=== PATIENT | male | born 1970 | race African-American/Black ===

== ENCOUNTER 2017-01-26 06:31 | Inpatient (IN) ==
[2017-01-26] MEDS ORDERED: diphenhydrAMINE 50 MG/1 ML VIAL ONE (06:44)
[2017-01-26] MEDS ORDERED: methylPREDNISolone SOD SUC 125 MG/2 ML VIAL ONE (06:44)
[2017-01-26] MEDS ORDERED: FAMOTIDINE 20 MG/2 ML VIAL IV ONE (06:45)
[2017-01-26] MEDS ORDERED: diphenhydrAMINE 50 MG/1 ML VIAL IV STA (07:04)
[2017-01-26] MEDS ORDERED: methylPREDNISolone SOD SUC 125 MG/2 ML VIAL IV STA (07:05)
[2017-01-26] MEDS ORDERED: FAMOTIDINE 20 MG/2 ML VIAL IV STA (07:05)
[2017-01-26] MEDS ORDERED: ONDANSETRON 4 MG/2 ML VIAL IV STA (07:35)
[2017-01-26] MEDS ORDERED: SODIUM CHLORIDE 0.9% 1,000 ML IV STA (07:35)
[2017-01-26 07:43] LABS: Basophils # 0.1 10*3/uL (0.0-0.2); Basophils % 0.5 % (0.0-0.8); Eosinophils # 0.3 10*3/uL (0.0-0.87); Eosinophils % 2.7 % (0.00-10.9); Immature Granulocytes % 0.3 %; Immature Granulocytes Absolute 0.03 #; Lymphocytes # 2.9 10*3/uL (1.4-4.0); Lymphocytes % 27.2 % (21.2-54.2); Mean Corpuscular HGB Conc 32.4 GM/DL (32-36); Mean Corpuscular Hemoglobin 22 PG (27-34); Mean Corpuscular Volume 69.2 FL (87-102); Mean Platelet Volume 10.7 FL (9.6-12.0); Monocytes # 0.9 10*3/uL (0.11-0.8); Monocytes % 8.7 % (1.7-12.7); Neutrophils # 6.4 10*3/uL (1.4-7.4); Neutrophils % 60.6 % (38.7-73.9); Platelet Count 436 T/CUMM (130-400); Red Blood Count 4.91 MC/CUMM (3.8-5.5); White Blood Count 10.5 T/CUMM (4-12)
[2017-01-26] MEDS ORDERED: RACEPINEPHRINE 0.5 ML NEB RESP TX ONE (08:00)
[2017-01-26] MEDS ORDERED: RACEPINEPHRINE 0.5 ML NEB RESP TX STA (08:05)
--- NOTE | 2017-01-26 08:05 | Progress Note ---
Family Medicine PN Sub Interval history: Will electively intubate patient since speech has worsened since admission. Received solumedrol pepcid with no improvement per report. WOULD NOT WEAN PATIENT WITHOUT ENT EVALUATION PRIOR TO EXTUBATION. Exam (Progress Note) - Constitutional Vitals: Period Temp Pulse Resp BP Sys/Thomson Pulse Ox Last 24 Hr 97.5 F 90 18 142/82 96 Results - Labs CBC & BMP: 01/26/17 06:51
--- NOTE | 2017-01-26 08:08 | Emergency Department Note ---
Jamison Summers Gwan, am scribing for, and in the presence of, Anthony Crabtree Jr., MD 06:51. Leyda Summers Marvin Jr., MD, personally performed the services described in this documentation, ascribed by Catie Swift in my presence, and it is both accurate and complete 807 . Arrival - Arrival Chief Complaint: Allergic Reaction Stated Complaint: allergic reaction tongue swollen ED Nursing Triage Note: C/C allergic reaction. Woke up this morning with tongue swollen. Takes Linsinopril last dose was yesterday Mode of Arrival: Wheelchair Limitations: No Limitations Source: Patient, Family, Old Records Reviewed, RN Notes Reviewed - History of Present Illness HPI Narrative: Pt is a 46 y/o male who presents to the ED with a c/o swollen tongue on the right side with an onset this morning. ie he noted this when he woke up. Patient stated that he is taking Lisinopril and that he recently has knee surgery in which he was prescribed pain medication and two different antibiotics. Nurse noted that the patient has his last dose of Lisinopril yesterday. Family said that patient was given 2 gel caps of Benadryl this morning at 0500. He denies any itching, trouble breathing or wheezing. Pt has a PMHx of HTN, dyslipidemia and obstructive sleep apnea. Pt has a SHx of occasional alcohol and tobacco use. No other problems/complaints reported in ED. Onset (ago): hour(s) Consistency: constant Severity: severe Allergies/Adverse Reactions: Allergies Allergy/AdvReac Type Severity Reaction Status Date / Time No Known Allergies Allergy Verified 01/26/17 06:38 Home Medications: Home Medications Medication Instructions Recorded Confirmed Type Hydrochlorothiazide [Microzide] 12.5 mg PO DAILY 09/23/16 09/24/16 History Lisinopril 20 mg PO DAILY 09/23/16 09/24/16 History Rosuvastatin Calcium [Crestor] 5 mg PO DAILY 09/23/16 09/24/16 History amLODIPine [Norvasc] 10 mg PO DAILY 09/23/16 09/24/16 History HYDROcodone/ACETAMIN 7.5-325 2 tablet PO Q4H PRN #25 tablet 09/24/16 Rx [[place] 7.5-325] Review of System - Review of System 12 point system: reviewed and no additional remarkable complaints except as stated - Review of System Respiratory: Present: as per HPI. Absent: respiratory distress, wheezing Allergic/Immunologic: Present: as per HPI, other (swollen right side of tongue) Medical,Surgical,& Family Hx - Medical History Cardio: History of: Hypertension Neurology: No history of: Seizures HEENT: History of: Eye Problem (READING GLASSES) Endocrine: History of: Dyslipidemia Respiratory: History of: Obstructive Sleep Apnea (CPAP ON OCCASION; PT CAN NOT WEAR CONTINOUS.) Genitourinary: History of: Bladder Problem (FREQUENT URINATION AT NIGHT.) Musculoskeletal: History of: Musculoskeletal Problems (LT GREAT TOE SPUR; RT KNEE INJ.) Other: History of: Anesthesia Reactions (PT STATES HE WOKE UP DURING KNEE SURGERY.) - Surgical History HEENT Surgeries: Surgical HX of: Tonsilectomy & Adenoidectomy Orthopedic Surgeries: Surgical HX of;: Total Knee Replacement (LEFT KNEE REPLACEMENT) - Social History Smoking Status: Light tobacco smoker Frequency of Alcohol Use: Occasionally Type of Drug Use: None Exam Physical Examination: General: Well-developed well-nourished, no apparent distress. Head: Normocephalic, atraumatic. Eyes: PERRLA, EOMI. Nose: No obvious acute deformities or discharge. Mouth: Tongue is grossly swollen with the right side more than the left. Still adequate space above is time to intubate if necessary. He seems to have no trouble breathing or swallowing at this time. He is not in stridor or distress. Neck: Full range of motion without obvious pain. No midline tender to palpation. Lymphatic: no significant lymphadenopathy noted. Lungs: Clear to auscultation bilaterally, normal and equal air movement bilaterally, no obvious rales or wheezing. Heart: regular rate and rhythm, no obvious mummers. Abdomen: Soft nontender, nondistended, normal active bowel sounds. Skin: No obivous acute lesions noted Musculoskeletal: No gross deformities. Neurological: No focal findings, cranial nerves II through XII grossly normal. Psychiatric: Anxious : Deferred Vital Signs: Vital Signs Temperature 97.5 F L 01/26/17 06:33 Pulse Rate 90 01/26/17 06:33 Respiratory Rate 18 01/26/17 06:33 Blood Pressure 142/82 01/26/17 06:33 O2 Sat by Pulse Oximetry 96 01/26/17 06:33 Course Course Narrative: Differential diagnosis, angioedema - Reevaluation(s) Reevaluation #1: It appears the tongue is getting a little bit more swollen and does have a little more difficulty talking. Anesthesiologist came over and they agree that patient needs to be intubated. They will take him over to the surgery to intubate him. We will admit him to the hospitalist service. I talked to the hospitalist service and they accept this patient for admission. Time: 07:33 Reevaluation #2: Anesthesia and ENT are here now. Will take the patient to the OR for intubation and then moving to the ICU. Hospitalist service has accepted this patient for care. They have already seen the patient also. Time: 08:06 Results - Labs CBC & BMP: 01/26/17 06:51 Lab Results: I have reviewed the patients labs Labs: Laboratory Tests 01/26/17 06:51 WBC 10.5 RBC 4.91 Hgb 11.0 L Hct 34.0 L MCV 69.2 L MCH 22 L MCHC 32.4 RDW 15.0 Plt Count 436 H MPV 10.7 Neut % (Auto) 60.6 Lymph % (Auto) 27.2 [place] % (Auto) 8.7 Eos % (Auto) 2.7 Baso % (Auto) 0.5 Neut # (Auto) 6.4 Lymph # (Auto) 2.9 [place] # (Auto) 0.9 H Eos # (Auto) 0.3 Baso # (Auto) 0.1 Immature Gran % 0.3 Nucleated RBC % 0.0 Immature Gran # 0.03 Nucleated RBCs # 0.00 Critical Care Time Critical Care Time: Yes (Angioedema that is worsening and lead to respiratory compromise) Total Critical Care Time: 35 Disposition Clinical Impression: Worsening angioedema, Hypertension Case discussed with: patient, patient's family Disposition: Still a Patient Condition: Guarded Time of Disposition: 08:07
[2017-01-26] MEDS ORDERED: SUCCINYLCHOLINE 200 MG/10 ML VIAL ONE (08:10)
[2017-01-26] MEDS ORDERED: VECURONIUM 10 MG VIAL IV ONE (08:10)
[2017-01-26] MEDS ORDERED: ONDANSETRON 4 MG/2 ML VIAL ONE (08:10)
[2017-01-26] MEDS ORDERED: GLYCOPYRROLATE 0.4 MG/2 ML VIAL ONE (08:10)
[2017-01-26] MEDS ORDERED: PROPOFOL 200 MG/20 ML VIAL IV ONE (08:10)
--- NOTE | 2017-01-26 08:21 | Hospitalist History & Physical ---
<Dima Mansfield - Last Filed: 01/26/17 08:58> Assessment and Plan (1) Angioedema Status: Acute Assessment and plan: Stop lisinopril. Pt. will be intubated. ICU monitoring. Current Visit: Yes History of Present Illness Chief complaint: angioedema History of present illness: Mr. Hillman is a 46-year-old black male patient who presented to the ED with complaints of a swollen tongue. Patient stated that he noted that his tongue was swollen when he woke up this morning. Patient states that he also feels like his tongue had swollen a couple days before but it was not as severe as today. Patient is currently taking 20 mg of lisinopril p.o. daily. Last dose was taken yesterday morning. Upon noting the swollen tongue this morning, the patient's family members gave him 2 benadryl gel caps around 5 AM this morning. The patient denies any trouble breathing or wheezing but the patient states that he is having issues with swallowing. Patient has a past medical history of hypertension, dyslipidemia, obstructive sleep apnea, and a recent knee surgery. Patient received Benadryl, Pepcid, and Solu-Medrol, in the ED this am. Tongue swelling is worsening. CRNAs present at bedside. Patient will be admitted to the hospitalist service, intubated, and sent to ICU for close monitoring. Pulmonology consulted for vent management. Home Medications Medication Instructions Recorded Confirmed Type Hydrochlorothiazide [Microzide] 12.5 mg PO DAILY 09/23/16 01/26/17 History Lisinopril 20 mg PO DAILY 09/23/16 01/26/17 History Rosuvastatin Calcium [Crestor] 5 mg PO DAILY 09/23/16 01/26/17 History amLODIPine [Norvasc] 10 mg PO DAILY 09/23/16 01/26/17 History HYDROcodone/ACETAMIN 7.5-325 2 tablet PO Q4H PRN #25 tablet 09/24/16 01/26/17 Rx [[place] 7.5-325] Aspirin/Calcium Carbonate/Mag 1 tablet DAILY 01/26/17 01/26/17 History [Aspirin Buffered 325 mg Tab] Bifidobacterium Infantis [Align] See Protocol PO DIRECTED 01/26/17 01/26/17 History Carvedilol 6.25 mg PO BID 01/26/17 01/26/17 History Oxycodone HCl/Acetaminophen 1 each PO Q4-6H PRN 01/26/17 01/26/17 History [Oxycodone-Acetaminophen 5-325] Sulfameth/Trimeth 800-160 Tab 1 tablet PO BID 01/26/17 01/26/17 History [Bactrim DS Tab] Allergies Allergy/AdvReac Type Severity Reaction Status Date / Time No Known Allergies Allergy Verified 01/26/17 06:38 Medical,Surgical,& Family Hx - Medical History Cardio: History of: Hypertension Neurology: No history of: Seizures HEENT: History of: Eye Problem (READING GLASSES) Endocrine: History of: Dyslipidemia Respiratory: History of: Obstructive Sleep Apnea (CPAP ON OCCASION; PT CAN NOT WEAR CONTINOUS.) Genitourinary: History of: Bladder Problem (FREQUENT URINATION AT NIGHT.) Musculoskeletal: History of: Musculoskeletal Problems (LT GREAT TOE SPUR; RT KNEE INJ.) Other: History of: Anesthesia Reactions (PT STATES HE WOKE UP DURING KNEE SURGERY.) - Surgical History HEENT Surgeries: Surgical HX of: Tonsilectomy & Adenoidectomy Orthopedic Surgeries: Surgical HX of;: Total Knee Replacement (LEFT KNEE REPLACEMENT) - Social History Smoking Status: Light tobacco smoker Frequency of Alcohol Use: Occasionally Type of Drug Use: None - Constitutional Constitutional: Present: stops breathing during sleep (MERLENE; noncompliant with cpap). Absent: headache(s) - EENT Eyes: Present: other (wears reading glasses) Ears: Absent: decreased hearing Nose, mouth and throat: Present: dysphagia, tongue swelling, other - Cardiovascular Cardiovascular: Absent: chest pain at rest - Respiratory Respiratory: Absent: dyspnea, hemoptysis - Gastrointestinal Gastrointestinal: Absent: abdominal pain - Genitourinary Genitourinary: Absent: difficulty urinating, hematuria - Neurological Neurological: Absent: abnormal speech - Psychiatric Psychiatric: Absent: confusion Exam - Constitutional Vitals: Period Temp Pulse Resp BP Sys/Thomson Pulse Ox Last 24 Hr 97.5 F 90 18 142/82 96 General appearance: mild distress, over weight - Head Head exam: Present: normal inspection, normocephalic - Eye Eye exam: Present: EOMI Pupils: Present: KELSY, normal accommodation - ENT ENT exam: Present: other (swollen tongue) - Neck Neck exam: Present: normal inspection - Respiratory Respiratory exam: Present: clear to auscultation bilaterally - Cardiovascular Cardiovascular exam: Present: regular rate and rhythm - GI/Abdominal GI/Abdominal exam: Present: normal bowel sounds, soft. Absent: tenderness - Extremities Exam Extremities exam: Present: normal inspection, normal capillary refill, full ROM - Neurological Exam Neurological exam: Present: alert, oriented X3, normal gait - Psychiatric Psychiatric exam: Present: normal affect, normal mood - Skin Skin exam: Present: normal color, warm, dry Results - Labs CBC & BMP: 01/26/17 06:51 Lab Results: I have reviewed the past 24 hour labs <Teodoro Zapata - Last Filed: 01/26/17 11:04> History of Present Illness History of present illness: Mr. Hillman is a 46 year old male Patient was seen independently in the emergency room and examined prior to intubation. He has been on lisinopril for quite some time. He did start Bactrim 3-4 days ago for his left lower extremity. He status post total knee replacement and had a soft immobilizer. More than likely lisinopril is responsible for angioedema but I have advised family to avoid sulfite as well just to be on the safe side. Patient's family history includes atrial fibrillation and his mother. Prior to admission he was living independently and ambulatory. I will otherwise reviewed the documentation of this history and physical and agree with evaluation assessment and plan except as noted. Patient is being semi-electively intubated and will be on steroids Pepcid Benadryl and will get pulmonary consultation for ventilatory management Exam - Constitutional Vitals: Period Temp Pulse Resp BP Sys/Thomson Pulse Ox Last 24 Hr 97.1 F-97.8 F 78-92 14-14 124-156/78-103 97-100 Results - Labs CBC & BMP: 01/26/17 06:51 01/26/17 09:28
[2017-01-26] MEDS ORDERED: LIDOCAINE 2%/EPI 20 ML VIAL ONE (08:24)
--- NOTE | 2017-01-26 08:30 | Consultation ---
Assessment and Plan - Time spent with patient Time spent with patient: Less than 30 minutes Time spent discussing smoking cessation with patient: 3 to 10 minutes History of Present Illness - Data of Consult Consult date: 01/26/17 Requesting Physician: Davin Sam - Consult Narrative Reason for consult: angioedema History of present illness: Mr. Hillman is a 46 year old male with sudden onset of tongue swelling early this a.m. Seen by ED physician, administered IV Solumedrol. I was contacted by Dr. Sam who indicated that a decision has been made to proceed with semi- elective intubation, and I have been asked to attend for stand-by urgent tracheotomy if needed. Patient is awake, able to speak with a somewhat muffled voice. Not tachypneic at this time. ED note reviewed. CC: - Home Medications and Allergies Home Medications: Home Medications Medication Instructions Recorded Confirmed Type Hydrochlorothiazide [Microzide] 12.5 mg PO DAILY 09/23/16 09/24/16 History Lisinopril 20 mg PO DAILY 09/23/16 09/24/16 History Rosuvastatin Calcium [Crestor] 5 mg PO DAILY 09/23/16 09/24/16 History amLODIPine [Norvasc] 10 mg PO DAILY 09/23/16 09/24/16 History HYDROcodone/ACETAMIN 7.5-325 2 tablet PO Q4H PRN #25 tablet 09/24/16 Rx [[place] 7.5-325] Allergies/Adverse Reactions: Allergies Allergy/AdvReac Type Severity Reaction Status Date / Time No Known Allergies Allergy Verified 01/26/17 06:38 12 point system: reviewed and no additional remarkable complaints except as stated - EENT Nose, mouth and throat: Present: tongue swelling. Absent: lip swelling Medical,Surgical,& Family Hx - Medical History Cardio: History of: Hypertension Neurology: No history of: Seizures HEENT: History of: Eye Problem (READING GLASSES) Endocrine: History of: Dyslipidemia Respiratory: History of: Obstructive Sleep Apnea (CPAP ON OCCASION; PT CAN NOT WEAR CONTINOUS.) Genitourinary: History of: Bladder Problem (FREQUENT URINATION AT NIGHT.) Musculoskeletal: History of: Musculoskeletal Problems (LT GREAT TOE SPUR; RT KNEE INJ.) Other: History of: Anesthesia Reactions (PT STATES HE WOKE UP DURING KNEE SURGERY.) - Surgical History HEENT Surgeries: Surgical HX of: Tonsilectomy & Adenoidectomy Orthopedic Surgeries: Surgical HX of;: Total Knee Replacement (LEFT KNEE REPLACEMENT) - Social History Smoking Status: Light tobacco smoker Frequency of Alcohol Use: Occasionally Type of Drug Use: None Exam - Constitutional Vitals: Period Temp Pulse Resp BP Sys/Thomson Pulse Ox Last 24 Hr 97.5 F 78-90 18-20 108-142/75-82 96 General appearance: morbidly obese - Head Head exam: Present: normal inspection - ENT ENT exam: Absent: normal oropharynx (tongue and floor of mouth with angioedema changes) - Neck Neck exam: Present: normal inspection (no scars, no previous surgery). Absent: lymphadenopathy Results - Labs CBC & BMP: 01/26/17 06:51 - Impressions angioedema - ?BALAJI inhibitor vs other medication reaction Agree with plan for controlled intubation, will be on standby in OR for tracheotomy if needed. Discussed with patient and family possible risks, benefits, alternate therapies. He agrees to proposed procedure.
--- NOTE | 2017-01-26 08:49 | Operative Note ---
Date of procedure: 01/26/17 Pre-op diagnosis: angiodema Post-op diagnosis: same Procedure: controlled intubation per anesthesia. epiglottis visualized via glidescope, note to be normal, vocal cords without angioedema. Anesthesia: GETA Surgeon / Physician: Davin Govea Estimated blood loss: none Specimens: none sent Condition: stable Disposition: ICU Results - Labs CBC & BMP: 01/26/17 06:51 Discharge Plan - Discharge Data Disposition: Still a Patient - Discharge Medications No Action amLODIPine [Norvasc] 10 mg PO DAILY Lisinopril 20 mg PO DAILY Hydrochlorothiazide [Microzide] 12.5 mg PO DAILY Rosuvastatin Calcium [Crestor] 5 mg PO DAILY HYDROcodone/ACETAMIN 7.5-325 [[place] 7.5-325] 2 tablet PO Q4H PRN #25 tablet PRN Reason: Pain Moderate (4-7) - Follow Up or Referral - Forms/Instructions
[2017-01-26] MEDS ORDERED: PROPOFOL 1,000 MG/100 ML BOTTLE IV SCH (09:00)
[2017-01-26] MEDS ORDERED: MIDAZOLAM 2 MG/2 ML VIAL ONE (09:08)
[2017-01-26] MEDS ORDERED: LACTATED RINGERS 1,000 ML IV ONE (09:08)
[2017-01-26] MEDS ORDERED: SEVOFLURANE 1 UNIT/15 MINUTE INH ONE (09:08)
[2017-01-26] MEDS: methylPREDNISolone SOD SUC 125 MG/2 ML VIAL IV SCH ×3 (09:18→21:17)
[2017-01-26] MEDS: PROPOFOL 1,000 MG/100 ML BOTTLE IV SCH ×7 (09:19→23:01)
[2017-01-26] MEDS ORDERED: hydrALAZINE 20 MG/1 ML VIAL IV PRN (09:25)
[2017-01-26 09:45] LABS: ABG Base Excess 2.9 MMOL/L (-2.5-2.5); ABG Oxygen Saturation 97.9 % (95-100); ABG PCO2 35.1 MM HG (35-48); ABG PH 7.481 (7.35-7.45); ABG PO2 97.3 MM HG (80-95); ABG TCO2 23.7 MMOL/L (23-27)
[2017-01-26 10:02] LABS: Alanine Aminotransferase 46 U/L (16-61); Albumin 2.9 G/DL (3.4-5.0); Alkaline Phosphatase 62 U/L (45-117); Aspartate Amino Transferase 28 U/L (0-37); Bilirubin,Total < 0.39 MG/DL (0.2-1.0); Blood Urea Nitrogen 22 MG/DL (7-18); Calcium 9.2 MG/DL (8.5-10.1); Glucose 99 MG/DL (74-106); Osmolality,Calculated 279.5 MOS/KG (273-304); Potassium 5.3 MMOL/L (3.5-5.1); Sodium 139 MMOL/L (136-145)
--- NOTE | 2017-01-26 10:45 | XRay Report ---
History: Angioedema. History of hypertension Date: 01/26/2017 Study: chest x-ray AP portable Comparison exam: September 23, 2016 chest x-ray The cardiomediastinal silhouette is unremarkable. There is some mild strandy subsegmental atelectasis in the lung bases. The pulmonary vasculature is not engorged. There is no gross pleural effusion. The study was performed in shallow inspiration. The osseous structures are unchanged. Otherwise unchanged Impression: Shallow inspiration with mild strandy subsegmental atelectasis in the lung bases PROCEDURE INTERPRETED AT [facility] DEPARTMENT OF RADIOLOGY Final Report Signed by: Dr. Saira Schafer
[2017-01-26] MEDS ORDERED: KETAMINE 500 MG/10 ML VIAL ONE (10:55)
[2017-01-26] MEDS: ENOXAPARIN 40 MG/0.4 ML SYRINGE SUBCUT SCH (11:17)
--- NOTE | 2017-01-26 11:20 | Anesthesia ---
Anesthesia Post OP - Post Ansesthetic Evaluation Patient seen in post op: Yes Resp: within normal limits (pt remains on vent) CV: within normal limits Mental: within normal limits (pt sedate) Temp: within normal limits [id number]: within normal limits Nausea and Vomiting: within normal limits Pain: within normal limits (pt sedate)
[2017-01-26] MEDS: diphenhydrAMINE 50 MG/1 ML VIAL IV SCH ×3 (11:53→23:18)
--- NOTE | 2017-01-26 13:33 | Pulmonology Consult Note ---
Assessment and Plan (1) Status post total knee replacement, left Status: Acute Assessment and plan: Patient's knee wound is doing well. Current Visit: Yes (2) Angioedema Status: Acute Assessment and plan: The patient is on the ventilator after presenting with angioedema. I will continue ventilatory support. Current Visit: Yes (3) Hypertension Status: Acute Assessment and plan: The patient has been taking lisinopril for hypertension Current Visit: Yes (4) Obstructive sleep apnea Status: Acute Assessment and plan: We will continue CPAP once he is off the ventilator. Current Visit: Yes History of Present Illness Chief complaint: Ventilator managed History of present illness: Mr. Hillman is a 46 year old black male that is very large and has a history of hypertension and obstructive sleep apnea. He came into the emergency room because he was having swelling of his tongue and felt like he was a little more short of breath. He does take lisinopril for his blood pressure. He apparently has been on sulfa also. He recently has had a left knee replacement. He came in was taken to the OR and had to be intubated. He apparently has considerable angioedema. He is stable on the ventilator at present. He does occasionally smoke cigarettes. He does use CPAP at night. Home Medications Medication Instructions Recorded Confirmed Type Hydrochlorothiazide [Microzide] 12.5 mg PO DAILY 09/23/16 01/26/17 History Lisinopril 20 mg PO DAILY 09/23/16 01/26/17 History Rosuvastatin Calcium [Crestor] 5 mg PO DAILY 09/23/16 01/26/17 History amLODIPine [Norvasc] 10 mg PO DAILY 09/23/16 01/26/17 History HYDROcodone/ACETAMIN 7.5-325 2 tablet PO Q4H PRN #25 tablet 09/24/16 01/26/17 Rx [[place] 7.5-325] Aspirin/Calcium Carbonate/Mag 1 tablet DAILY 01/26/17 01/26/17 History [Aspirin Buffered 325 mg Tab] Bifidobacterium Infantis [Align] See Protocol PO DIRECTED 01/26/17 01/26/17 History Carvedilol 6.25 mg PO BID 01/26/17 01/26/17 History Oxycodone HCl/Acetaminophen 1 each PO Q4-6H PRN 01/26/17 01/26/17 History [Oxycodone-Acetaminophen 5-325] Sulfameth/Trimeth 800-160 Tab 1 tablet PO BID 01/26/17 01/26/17 History [Bactrim DS Tab] Allergies Allergy/AdvReac Type Severity Reaction Status Date / Time No Known Allergies Allergy Verified 01/26/17 06:38 ROS unobtainable: due to endotracheal tube (He is unable to give any history at present.) Exam (Pulmonay) H&P - Constitutional Vitals: Period Temp Pulse Resp BP Sys/Thomson Pulse Ox Last 24 Hr 96.8 F-97.8 F 71-92 1-15 113-156/72-113 97-100 General appearance: no acute distress, over weight, other (He is comfortable on the ventilator at present.) - Head Head exam: Present: normal inspection, normocephalic - Eye Eye exam: Present: EOMI. Absent: scleral icterus Pupils: Present: KELSY - ENT ENT exam: Present: other (ET tube is in good position, there is swelling of the tongue.) - Neck Neck exam: Absent: lymphadenopathy, thyromegaly - Respiratory Respiratory exam: Absent: clear to auscultation bilaterally, wheezes - Cardiovascular Cardiovascular exam: Present: regular rate and rhythm. Absent: gallop, systolic murmur - GI/Abdominal GI/Abdominal exam: Present: normal bowel sounds, soft. Absent: organomegaly, tenderness - Extremities Exam Extremities exam: Present: other (Left knee wound is doing okay). Absent: calf tenderness, edema - Neurological Exam Neurological exam: Present: other (Is sedated on the ventilator present) - Skin Skin exam: Present: warm, dry Medical,Surgical,& Family Hx - Medical History Cardio: History of: Hypertension Neurology: No history of: Seizures HEENT: History of: Eye Problem (READING GLASSES) Endocrine: History of: Dyslipidemia Respiratory: History of: Obstructive Sleep Apnea (CPAP ON OCCASION; PT CAN NOT WEAR CONTINOUS.) Genitourinary: History of: Bladder Problem (FREQUENT URINATION AT NIGHT.) Musculoskeletal: History of: Musculoskeletal Problems (LT GREAT TOE SPUR; RT KNEE INJ.) Other: History of: Anesthesia Reactions (PT STATES HE WOKE UP DURING KNEE SURGERY.) - Surgical History Neurologic Surgeries: Patient denies: Neurologic Surgery HEENT Surgeries: Surgical HX of: Tonsilectomy & Adenoidectomy Orthopedic Surgeries: Surgical HX of;: Total Knee Replacement (LEFT KNEE REPLACEMENT) - Social History Smoking Status: Light tobacco smoker Frequency of Alcohol Use: Occasionally Type of Drug Use: None Results - Labs CBC & BMP: 01/26/17 06:51 01/26/17 09:28 Labs: PO2 is 97 with a PCO2 of 35 and a pH of 7.48 - Diagnostic Findings Procedure: Chest x-ray: image reviewed by me, report reviewed by me (Chest x- ray is clear)
[2017-01-26] MEDS: FAMOTIDINE 20 MG/2 ML VIAL IV SCH (21:11)
[2017-01-27] MEDS: PROPOFOL 1,000 MG/100 ML BOTTLE IV SCH ×2 (01:06→08:43)
--- NOTE | 2017-01-27 02:40 | Hospitalist Progress Note ---
"Hospitalist: Subjective Interval history: pt self extubated , acc to pt , he coughed and ET tube came out pt deneis any sob R|R 24\\mint well awake and alert 02 sat on 100% non rebreather is 99% , pt was intubated yesterday b\\c aof angioedema of tongue , sec to lisinopril, pt is getting iv solumedrol and iv benedryl and in iv pepsid, his tongue is almost gone , acc to him he able to close his mouth , tongue swelling is much reduced , plan keep monitor him contiune 100 % non rebreather . repeat ABG in am Exam - Constitutional Vitals: Period Temp Pulse Resp BP Sys/Thomson Pulse Ox Last 24 Hr 96.8 F-98.2 F 69-92 1-25 113-156/66-113 97-100 heent, pearle neck, supple. chest clear. cvs, s1 s2. abd, soft, bs+ high risk ob, alert orientedx3 afoca Results - Labs CBC & BMP: 01/26/17 06:51 01/26/17 09:28"
[2017-01-27] MEDS: methylPREDNISolone SOD SUC 125 MG/2 ML VIAL IV SCH (03:20)
[2017-01-27 03:28] LABS: ABG Base Excess -0.6 MMOL/L (-2.5-2.5); ABG HCO3 22.6 MMOL/L (20-26); ABG Oxygen Saturation 95.8 % (95-100); ABG PCO2 32.5 MM HG (35-48); ABG PO2 80.8 MM HG (80-95); ABG TCO2 23.6 MMOL/L (23-27); Allen Test Positive; Pt O2 Delivery Device Ventilator
[2017-01-27] MEDS: diphenhydrAMINE 50 MG/1 ML VIAL IV SCH (05:14)
[2017-01-27 05:44] LABS: Basophils % 0.1 % (0.0-0.8); Hematocrit 32.8 VOL% (42.0-52.0); Hemoglobin 10.7 GM/DL (14.0-18.0); Immature Granulocytes % 0.7 %; Immature Granulocytes Absolute 0.11 #; Lymphocytes # 1.3 10*3/uL (1.4-4.0); Lymphocytes % 8.5 % (21.2-54.2); Mean Corpuscular HGB Conc 32.6 GM/DL (32-36); Mean Corpuscular Hemoglobin 22 PG (27-34); Mean Corpuscular Volume 68.8 FL (87-102); Monocytes # 0.4 10*3/uL (0.11-0.8); Monocytes % 2.7 % (1.7-12.7); Neutrophils # 12.9 10*3/uL (1.4-7.4); Platelet Count 399 T/CUMM (130-400); Red Blood Count 4.77 MC/CUMM (3.8-5.5); Red Cell Distribution Width 14.4 % (9.3-17.3); White Blood Count 14.7 T/CUMM (4-12)
[2017-01-27 06:16] LABS: Albumin 2.9 G/DL (3.4-5.0); Bilirubin,Total 0.5 MG/DL (0.2-1.0); Calcium 9.5 MG/DL (8.5-10.1); Osmolality,Calculated 282.8 MOS/KG (273-304); Total Protein 8.9 G/DL (6.4-8.3)
--- NOTE | 2017-01-27 08:31 | Pulmonology Progress Note ---
Pulmonary - PN: Subj Interval history: Patient is a 46-year-old black man that came in with angioedema and has considerable swelling and shortness of breath. He was taken to the OR and intubated. He does have obstructive sleep apnea and hypertension and is overweight. He was doing fairly well and earlier this morning he self extubated. His swelling actually was much better and he is breathing okay. He is not having any stridor or shortness of breath now. He is talking clearly and says he feels okay. He does not appear to be short of breath at all. Exam (Progress Note) - Constitutional Vitals: Period Temp Pulse Resp BP Sys/Thomson Pulse Ox Last 24 Hr 96.8 F-98.9 F 69-92 1-25 113-156/63-113 95-100 Exam: General appearance: no acute distress, over weight, other (He is alert and comfortable and talking well.) - Head Head exam: Present: normal inspection, normocephalic - Eye Eye exam: Present: EOMI. Absent: scleral icterus Pupils: Present: KELSY - ENT ENT exam: Present: His tongue swelling is much better and he is talking without any problems - Neck Neck exam: Absent: lymphadenopathy, thyromegaly - Respiratory Respiratory exam: Absent: He has good breath sounds bilaterally is moving air well without any wheezing. - Cardiovascular Cardiovascular exam: Present: regular rate and rhythm. Absent: gallop, systolic murmur - GI/Abdominal GI/Abdominal exam: Present: normal bowel sounds, soft. Absent: organomegaly, tenderness - Extremities Exam Extremities exam: Present: other (Left knee wound is doing okay). Absent: calf tenderness, edema - Neurological Exam Neurological exam: Present: He is alert and talking and moving his extremities okay. - Skin Skin exam: Present: warm, dry Results - Labs CBC & BMP: 01/27/17 05:17 01/27/17 05:17 Labs: PO2 is 80 with a PCO2 32 and a pH of 7.46 Assessment and Plan (1) Status post total knee replacement, left Status: Acute Assessment and plan: Patient's knee wound is doing well. Current Visit: Yes (2) Angioedema Status: Acute Assessment and plan: The patient had angioedema but his swelling is much better. He is off the ventilator now breathing okay. He can move to a regular room today. Current Visit: Yes (3) Hypertension Status: Acute Assessment and plan: The patient has been taking lisinopril for hypertension. His medicines will have to be adjusted. Current Visit: Yes (4) Obstructive sleep apnea Status: Acute Assessment and plan: We will need to continue his CPAP Current Visit: Yes (5) Renal insufficiency Status: Acute Assessment and plan: The patient's creatinine is up to 2.7. Current Visit: Yes
--- NOTE | 2017-01-27 10:37 | Hospitalist Progress Note ---
Assessment and Plan (1) Angioedema Status: Acute Assessment and plan: The patient was taking lisinopril at the time he developed tongue swelling which is consistent with angioedema. We will discontinue lisinopril and add Norvasc. The patient will continue his other usual home medicines. Current Visit: Yes Qualifiers: Encounter type: initial encounter Qualified Code(s): T78.3XXA - Angioneurotic edema, initial encounter (2) Hypertension Status: Acute Current Visit: Yes (3) Obstructive sleep apnea Status: Acute Current Visit: Yes (4) Renal insufficiency Status: Acute Current Visit: Yes Hospitalist: Subjective Interval history: The patient was admitted to the hospital with tongue swelling and required mechanical ventilation to correct the airway. The patient's tongue swelling has resolved the patient has tolerated extubation this morning and is breathing comfortably with some hoarseness in his voice. The patient is ready to transfer out of critical care area. Exam - Constitutional Vitals: Period Temp Pulse Resp BP Sys/Thomson Pulse Ox Last 24 Hr 96.8 F-98.9 F 69-87 14-25 113-145/63-87 95-100 Exam: Constitutional System: Minimal distress. No tremulousness. Head: Normocephalic, atraumatic. Ears, Nose and Throat System: No evidence of Otitis or Mastoiditis. No epistaxis or discharge Eyes System: Pupils equal, round, and reactive. Extraocular muscles intact. Neck: Supple, without adenopathy, No jugular venous distention. No thyromegaly , neck mass, or prior surgery apparent. Respiratory System: Chest clear to auscultation. Cardiovascular System: Heart with regular rate and rhythm. No murmur. GI System: Abdomen soft, nontender. Normo active bowel sounds present. Musculoskeletal System: limbs with no pedal edema. Full distal pulses. Neurological System: No discernable sensory deficit. No aphasia Psychiatric System: Conversation is rational Results - Labs CBC & BMP: 01/27/17 05:17 01/27/17 05:17 Lab Results: I have reviewed the past 24 hour labs
[2017-01-27] MEDS: amLODIPine 10 MG TABLET PO SCH (11:07)
[2017-01-27] MEDS: ENOXAPARIN 40 MG/0.4 ML SYRINGE SUBCUT SCH (11:08)
[2017-01-27] MEDS: FAMOTIDINE 20 MG/2 ML VIAL IV SCH (11:08)
[2017-01-27] MEDS: methylPREDNISolone SOD SUC 40 MG/1 ML VIAL IV SCH ×2 (11:10→19:01)
[2017-01-27] MEDS ORDERED: oxyCODONE/ACETAMINOPHEN 5-325 MG TABLET PO PRN (15:17)
[2017-01-27] MEDS ORDERED: MAGNESIUM HYDROXIDE SUSP 30 ML UDCUP PO PRN (15:47)
[2017-01-27] MEDS: CARVEDILOL 6.25 MG TABLET PO SCH (21:48)
[2017-01-28] MEDS: methylPREDNISolone SOD SUC 40 MG/1 ML VIAL IV SCH ×2 (03:56→15:13)
--- NOTE | 2017-01-28 08:53 | Discharge Summary ---
Hospital Course - Hospital Course Hospital Course: The patient was admitted to the hospital with swollen uvula due to angioedema on account of lisinopril. The patient had ENT consultation and was electively intubated via the oral route. The patient's swelling improved. He tolerated extubation well. The patient was observed in the hospital and is now ready for discharge home. We are going to discontinue lisinopril and continue Coreg, Norvasc, and hydrochlorothiazide. The patient will follow-up for blood pressure visit with CALVIN Murillo in 2 weeks. Exam at the time of discharge shows clear chest, no stridor, heart has regular rate and rhythm. - Time spent with patient Time with patient DS: Greater than 30 minutes Diagnosis - Discharge Diagnosis (1) Angioedema Status: Resolved (2) Hypertension Status: Chronic (3) Obstructive sleep apnea Status: Chronic (4) Renal insufficiency Status: Chronic Discharge Plan - Discharge Data Disposition: Disch To Home/Self Care Condition at Discharge: Stable Discharge Diet: heart healthy - Discharge Medications Continue amLODIPine [Norvasc] 10 mg PO DAILY Hydrochlorothiazide [Microzide] 12.5 mg PO DAILY Rosuvastatin Calcium [Crestor] 5 mg PO DAILY HYDROcodone/ACETAMIN 7.5-325 [[place]more 7.5-325] 2 tablet PO Q4H PRN #25 tablet PRN Reason: Pain Moderate (4-7) Oxycodone HCl/Acetaminophen [Oxycodone-Acetaminophen 5-325] 1 each PO Q4-6H PRN PRN Reason: Pain Sulfameth/Trimeth 800-160 Tab [Bactrim DS Tab] 1 tablet PO BID Bifidobacterium Infantis [Align] See Protocol PO DIRECTED Aspirin/Calcium Carbonate/Mag [Aspirin Buffered 325 mg Tab] 1 tablet DAILY Carvedilol 6.25 mg PO BID Discontinued Lisinopril 20 mg PO DAILY - Follow Up or Referral Follow Up: Maite Morrell, [employer]INE OPERATOR [REFERRING DOCTOR/PRACTITIONER] - 2 Weeks - Forms/Instructions Exam - Constitutional Vitals: Period Temp Pulse Resp BP Sys/Thomson Pulse Ox Last 24 Hr 96.8 F-98.6 F 73-86 20-22 115-142/61-83 94-97 DS: Provider Date of admission: 01/26/17 08:05 Primary care physician: Jens Louis Jr., MD Attending physician on admission: Teodoro Zapata MD Discharging clinician: Bryan Bernal MD
[2017-01-28] MEDS ORDERED: amLODIPine 10 MG TABLET PO SCH (09:00)
[2017-01-28] MEDS ORDERED: ROSUVASTATIN 10 MG TABLET PO SCH (09:00)
[2017-01-28] MEDS ORDERED: PANTOPRAZOLE 40 MG TABLET PO SCH (09:00)
[2017-01-28] MEDS ORDERED: hydroCHLOROthiazide 12.5 MG CAPSULE PO SCH (09:00)
[2017-01-28] MEDS ORDERED: ASPIRIN EC 325 MG TABLET PO SCH (09:00)
--- NOTE | 2017-01-28 09:15 | Pulmonology Progress Note ---
Pulmonary - PN: Subj Interval history: Patient is a 46-year-old black man that came in with angioedema and has considerable swelling and shortness of breath. He was taken to the OR and intubated. He does have obstructive sleep apnea and hypertension and is overweight. He was doing fairly well and earlier this morning he self extubated. His swelling actually was much better and he is breathing okay. He did well through the night and his breathing is better. He is not having any more swelling or shortness of breath. Overall he is quite stable and will go home today. Exam (Progress Note) - Constitutional Vitals: Period Temp Pulse Resp BP Sys/Thomson Pulse Ox Last 24 Hr 96.8 F-98.6 F 73-86 20-22 115-142/61-83 94-97 Exam: General appearance: no acute distress, over weight, other (He is alert and comfortable and talking well. He is not having any stridor or shortness of breath.) - Head Head exam: Present: normal inspection, normocephalic - Eye Eye exam: Present: EOMI. Absent: scleral icterus Pupils: Present: KELSY - ENT ENT exam: Present: His tongue swelling is much better and he is talking without any problems - Neck Neck exam: Absent: lymphadenopathy, thyromegaly - Respiratory Respiratory exam: Absent: He has good breath sounds bilaterally is moving air well without any wheezing. - Cardiovascular Cardiovascular exam: Present: regular rate and rhythm. Absent: gallop, systolic murmur - GI/Abdominal GI/Abdominal exam: Present: normal bowel sounds, soft. Absent: organomegaly, tenderness - Extremities Exam Extremities exam: Present: other (Left knee wound is doing okay). Absent: calf tenderness, edema - Neurological Exam Neurological exam: Present: He is alert and talking and moving his extremities okay. - Skin Skin exam: Present: warm, dry Results - Labs CBC & BMP: 01/27/17 05:17 01/27/17 05:17 Assessment and Plan (1) Status post total knee replacement, left Status: Acute Assessment and plan: Patient's knee wound is doing well. He will continue with physical therapy. Current Visit: Yes (2) Angioedema Status: Resolved Assessment and plan: The patient had angioedema but his swelling is much better. This looks like it has resolved and he will continue to taper steroids. He is going home today. Current Visit: Yes Qualifiers: Encounter type: initial encounter Qualified Code(s): T78.3XXA - Angioneurotic edema, initial encounter (3) Hypertension Status: Chronic Assessment and plan: The patient has been taking lisinopril for hypertension. His medicines will have to be adjusted. His blood pressure stable at present Current Visit: Yes (4) Obstructive sleep apnea Status: Chronic Assessment and plan: We will need to continue his CPAP Current Visit: Yes (5) Renal insufficiency Status: Chronic Assessment and plan: The patient's creatinine is up to 2.7. His renal function will have to be followed. Current Visit: Yes Specialty Discharge - Follow Up or Referrals Follow up with: Maite Morrell NP [REFERRING DOCTOR/PRACTITIONER] - 2 Weeks
[2017-01-28] MEDS: CARVEDILOL 6.25 MG TABLET PO SCH (09:43)
[2017-01-28] MEDS: amLODIPine 10 MG TABLET PO SCH (09:44)
[2017-01-28 11:09] VITALS: BP 130/72
[2017-01-29] MEDS ORDERED: ASPIRIN EC 325 MG TABLET PO SCH (09:00)
== END 2017-01-28 12:50 | disposition home or self-care (01) | DRG 916 ==
LOC: N.ED 06:31 → N.EDINP 08:05 → SUATTDRO 08:05 → N.ICU 08:12 → N.4E 01-27 15:01
PROVIDERS: ADMIT Internal Medicine; ATTEND Internal Medicine